=== PATIENT | female | born 1965 | race American Indian/Alaskan Native ===

== ENCOUNTER 2018-05-29 10:21 | Emergency (ER) | payer SELFPAY ==
--- NOTE | 2018-05-29 11:22 | ED PDOC ---
Upper Extremity Pain/Injury Time Seen by Provider: 05/29/18 10:54 Chief Complaint (Nursing): Upper Extremity Problem/Injury Chief Complaint (Provider): Right shoulder pain History Per: Patient History/Exam Limitations: no limitations Additional Complaint(s): 53 y/o F with no PMH who presents with shoulder pain x 2 months. She states that she moved 2 months ago but did not do any heavy lifting. She has not been sleeping on her regular bed and so has not been sleeping well. The pain started gradually but has been unable to raise Right arm much at all for the past 2 months due to pain. Denies trauma, fall, numbness or tingling in hand, elbow or wrist pain. No neck pain. Past Medical History Reviewed: Historical Data, Nursing Documentation, Vital Signs Vital Signs: Last Vital Signs Temp 98.0 F 05/29/18 10:27 Pulse 84 05/29/18 10:27 Resp 18 05/29/18 10:27 BP 176/111 H 05/29/18 10:27 Pulse Ox 100 05/29/18 10:27 - Medical History PMH: No Chronic Diseases - Family History Family History: States: Unknown Family Hx - Home Medications Home Medications: Ambulatory Orders Medication Instructions Recorded Cyclobenzaprine [Cyclobenzaprine 10 mg PO Q8 PRN 5 Days tab 05/29/18 HCl] RX: Ibuprofen [Motrin Tab] 600 mg PO Q6 PRN 5 Days tab 05/29/18 - Allergies Allergies/Adverse Reactions: Allergies Allergy/AdvReac Type Severity Reaction Status Date / Time No Known Allergies Allergy Verified 05/29/18 10:50 Physical Exam - Reviewed Nursing Documentation Reviewed: Yes Vital Signs Reviewed: Yes - Physical Exam Appears: Positive for: Well Head Exam: Positive for: ATRAUMATIC Neck: Positive for: Normal, Supple Extremity: Positive for: Other (Right suprascapular tenderness with tenderness over entire Right shoulder. No swelling or deformity noted. No tenderness over humerus. ). Negative for: Normal ROM (decreased passive and active ROM with flexion and abduction of Right arm. normal flexion and extension of Right elboow. Sensation intact in b/L upper extremiteis. ) Neurologic/Psych: Positive for: Alert, Oriented, Other (home health cna strength = in B/L upper extremities. 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 Advised to perform slow exercises and use Ibuprofen and Flexeril as needed for pain. F/u with orthopedics. BP improved to 143/86 Disposition - Clinical Impression Clinical Impression: Frozen shoulder syndrome - Patient ED Disposition Is Patient to be Admitted: No Counseled Patient/Family Regarding: Studies Performed, Diagnosis, Need For Fo llowup, Rx Given - Disposition Referrals: [facility] [place] [Outside] [facility] [place] [Outside] Disposition: Routine/Home Disposition Time: 13:04 Condition: STABLE Additional Instructions: Use Ibuprofen and Flexeril for pain. Attempt shoulder exercises when pain is better controlled. You will likely need physical therapy. F/u in Orthopedic clinic for further evaluation. Prescriptions: Cyclobenzaprine [Cyclobenzaprine HCl] 10 mg PO Q8 PRN 5 Days tab PRN Reason: Pain, Moderate (4-7) RX: Ibuprofen [Motrin Tab] 600 mg PO Q6 PRN 5 Days tab PRN Reason: Pain, Moderate (4-7) Instructions: Frozen Shoulder (DC), Frozen Shoulder Exercises Forms: [employer] (Italian) Print Language: GEORGIAN
[2018-05-29 13:04] VITALS: BP 143/86; PULSE 67; RESP 16; TEMP 98.5
--- NOTE | 2018-05-29 14:25 | RAD ---
Date of service: 05/29/2018 PROCEDURE: Radiographs of the Right Shoulder HISTORY: shoulder pain X 2 months COMPARISON: No prior. FINDINGS: BONES: Normal. No fracture. JOINTS: Normal. Glenohumeral and acromioclavicular joints preserved. No osteoarthritis. SOFT TISSUES: Normal. OTHER FINDINGS: None. IMPRESSION: Normal radiographs of the right shoulder.
[2018-05-29 21:15] VITALS: O2SAT 100
== END 2018-05-29 13:07 | disposition home or self-care (01) ==
LOC: SUPCPDRO 10:21 → H.ER 10:21
DX: M75.01 Adhesive capsulitis of right shoulder (principal)
CPT/HCPCS: 73030; 96372; 99283; J1885

== ENCOUNTER 2018-07-05 09:21 | Emergency (ER) | payer SELFPAY ==
[2018-07-05 09:26] VITALS: BMI 36.6
[2018-07-05 09:28] VITALS: BP 134/88; PULSE 89; RESP 20; TEMP 98.5; O2SAT 100
[2018-07-05] MEDS ORDERED: DiphenhydrAMINE 50 mg/ml Inj IM STA (09:52)
[2018-07-05] MEDS ORDERED: DiphenhydrAMINE 50 mg/ml Inj ONE (10:04)
--- NOTE | 2018-07-05 10:23 | ED PDOC ---
HPI: Eye Injury/Pain Time Seen by Provider: 07/05/18 09:41 Chief Complaint (Nursing): Eye Problem Chief Complaint (Provider): Eye Problem History Per: Patient History/Exam Limitations: no limitations Onset/Duration Of Symptoms: Days Current Symptoms Are (Timing): Still Present Additional Complaint(s): 53 y/o female presents to the ED for evaluation of swelling of the right eyelid. Patient states she woke up with swelling and is now concerned for a possible allergic reaction to seafood which she has never had before. Patient additionally reports of swelling to the left back, right arm and right leg. Patient states she recently moved from [place] and has been staying at various friends and relatives houses's while she is looking for her own. Patient denies any pets, known allergies, insects in her car where she has been sleeping, insect bites, swelling to the tips and tongue as well as fever. PMD: non H Provider Past Medical History Reviewed: Historical Data, Nursing Documentation, Vital Signs Vital Signs: Last Vital Signs Temp 98.5 F 07/05/18 09:26 Pulse 89 07/05/18 09:26 Resp 20 07/05/18 09:26 BP 134/88 07/05/18 09:26 Pulse Ox 100 07/05/18 09:26 - Medical History PMH: No Chronic Diseases - Surgical History Surgical History: No Surg Hx - Family History Family History: States: Unknown Family Hx - Immunization History Hx Influenza Vaccination: No - Home Medications Home Medications: Ambulatory Orders Medication Instructions Recorded Cyclobenzaprine [Cyclobenzaprine 10 mg PO Q8 PRN 5 Days tab 05/29/18 HCl] RX: Ibuprofen [Motrin Tab] 600 mg PO Q6 PRN 5 Days tab 05/29/18 - Allergies Allergies/Adverse Reactions: Allergies Allergy/AdvReac Type Severity Reaction Status Date / Time No Known Allergies Allergy Verified 05/29/18 10:50 Review of Systems ROS Statement: Except As Marked, All Systems Reviewed And Found Negative Eyes: Positive for: Eyelid Inflammation Musculoskeletal: Positive for: Arm Pain (SWELLING TO THE RIGHT LEG), Back Pain (SWELLING TO THE LOW BACK), Leg Pain (SWELLING TO THE RIGHT LEG) Physical Exam - Reviewed Nursing Documentation Reviewed: Yes Vital Signs Reviewed: Yes - Physical Exam Appears: Positive for: No Acute Distress Head Exam: Positive for: ATRAUMATIC, NORMOCEPHALIC Skin: Positive for: Warm, Dry. Negative for: Normal Color (Small areas of erythema and swelling 1-2 cm in size. (2 to the left lower back, 2 to the right thight, 1 to the right wrist)) Eye Exam: Positive for: PERRL. Negative for: Normal appearance (Right Upper Eyelid is Swollen. No visible puncture sight. no warmth or streaking. Full ROM of the eye. ) ENT: Negative for: Other (Swelling of lips or tongue. Pooling of secretions.) Neck: Positive for: Normal, Painless ROM Cardiovascular/Chest: Positive for: Regular Rate, Rhythm. Negative for: Murmur Respiratory: Positive for: Normal Breath Sounds. Negative for: Respiratory Distress Extremity: Positive for: Normal ROM Neurologic/Psych: Positive for: Alert, Oriented. Negative for: Motor/Sensory Deficits - ECG O2 Sat by Pulse Oximetry: 100 (RA) Pulse Ox Interpretation: Normal Medical Decision Making Medical Decision Making: Time: 951 A/P: Right eyelid swelling and areas of erythema consistent with insect bite. -- Swelling and discomfort improved with cortizone cream. Patient declining prescription and states she cannot afford to purchase prescribed medications. -- Patient to be given cream from the ER. Patient advised to take Benadryl for swelling. -- Patient advised to take all bedding, clothing and look for insects/bed bugs where she is sleeping. -- Benadryl 50 mg IM -- Cortizone 1% Cream 1 applic TOP 1030 Improved swelling and itching to the body and extremities. Outpatient referral. Scribe Attestation: Documented by Lisa Vega, acting as a scribe for Susan Casas MD. Provider Scribe Attestation: All medical record entries made by the Scribe were at my direction and personally dictated by me. I have reviewed the chart and agree that the record accurately reflects my personal performance of the history, physical exam, medical decision making, and the department course for this patient. I have also personally directed, reviewed, and agree with the discharge instructions and disposition. Disposition - Clinical Impression Clinical Impression: Insect bite - Patient ED Disposition Is Patient to be Admitted: No - Disposition Referrals: [facility] [Outside] Disposition: Routine/Home Disposition Time: 10:31 Condition: STABLE Additional Instructions: Apply cortisone cream twice daily to swollen areas and avoid getting it into the eye. Take Benadryl (can be purchased from any pharmacy over the counter) for swelling and itchiness. Follow up with primary medical doctor or an energy specialist for further testing. Instructions: Insect Bites and Stings (DC) Forms: [employer] (Trinidadian) Print Language: CHADIAN
== END 2018-07-05 10:33 | disposition home or self-care (01) ==
LOC: H.ER 09:21
DX: S00.261A Insect bite (nonvenomous) of right eyelid and periocular area, initial encounter (principal); W57.XXXA Bitten or stung by nonvenomous insect and other nonvenomous arthropods, initial encounter
CPT/HCPCS: 96372; 99283; J1200